=== PATIENT | male | born 1985 | race Caucasian/White ===

== ENCOUNTER 2023-10-28 14:34 | Inpatient (IN) | payer SELFPAY ==
--- OUTSIDE RECORDS SUMMARY | 2023-10-28 14:38 | XMS REPORT | Continuity of Care Document ---
Author Name Unknown Address [address] [facility] [address] [place] [address] [facility] Address [address] [facility] [address] [facility] [address] [place] [address] Care Team Providers Care Catheter Finisher And Inspector Name Role Phone GAY BRADFORD Primary Care Physician Unavail able BARRY DALLAS Attending Clinician Unavailable GHANSHYAM VALDEZ Attending Clinician Unavail able Nurse, Adc Pob Immunization Attending Clinician Unavailable Ghanshyam Valdez DO Attending Clinician [phone] CLEMENTE LADD Attending Clinician Unavailable Clemente Ladd MD Attending Clinician [phone] Gay Mehta Attending Clinician [phone] GAY BRADFORD Attending Clinician Unavailabl e Doctor Unassigned, [place] Attending Clinician U Marshall Lacy MD Attending Clinician [phone] Shawn Amezcua MD Attending Clinician [phone] MARSHALL MERA Attending Clinician Unavailable Shawn Amezcua MD Admitting Clinician [phone] Payers Payer Name Policy Type Policy Number Effective Date Expirati on Date Source [facility] [id number] 00:00:00 Problems Condition Name Condition Details Condition Category Status Onset Date Resolution Date Last Treatment Date Treating Clinician Comments Source Morbid obesity with body mass index of 40.0-49.9 Morbid obesity with body mass index of 40.0-49.9 Disease Active 04-17 00:00: 00 [facility] Chest pain Chest pain Disease Active 04-17 00:00: 00 [facility] Morbid obesity with body mass index of 40.0-49.9 Morbid obesity with body mass index of 40.0-49.9 Disease Active 04-17 00:00: 00 [facility] Essential hypertensi on Essential hypertensi on Disease Active 04-17 00:00: 00 [facility] Family history of early CAD Family history of early CAD Disease Active 04-17 00:00: 00 [facility] Allergies, Adverse Reactions, Alerts Allergy Name Allergy Type Status Severity Reaction(s) Onset Date Inactive Date Treating Clinician Comments Source NO KNOWN ALLERGIE S Drug Class Active [facility] Social History Social Habit Start Date Stop Date Quantity Comments Source Exposure to SARS-CoV-2 (event) Not sure [facility] Alcohol intake 2021-05-07 00:00:00 2021-05-07 00:00:00 Lifetime non-drinker (finding) [facility] Tobacco use and exposure 2021-04-17 00:00:00 2021-04-17 00:00:00 Never used [facility] Sex Assigned At 1985 00:00:00 1985 00:00:00 [facility] Smoking Status Start Date Stop Date Source Never smoker [facility] Medications Ordered Medication Name Filled Medication Name Start Date Stop Date Current Medication? Ordering Clinician Indication Dosage Frequency Signature (SIG) Comments Components Source lisinopriL 20 mg tablet 05-01 20:09: 37 05-01 00:00 :00 No 20mg Take 20 mg by mouth daily. [facility] lisinopriL 20 mg tablet 05-01 20:09: 37 05-01 00:00 :00 No 20mg Take 20 mg by mouth daily. [facility] lisinopriL 20 mg tablet 05-01 00:00: 00 Yes [id number] 20mg Take 1 tablet by mouth daily. [facility] atorvastati n 20 mg tablet 0 14 00:00: 00 Yes [id number] 20mg Take 1 tablet by mouth at bedtime. [facility] aspirin 81 mg chewable tablet 0 14 00:00: 00 Yes [id number] 81mg Take 1 tablet by mouth daily. [facility] lisinopriL 20 mg tablet 0 14 00:00: 00 Yes [id number] 20mg Take 1 tablet by mouth daily. [facility] atorvastati n 20 mg tablet 0 14 00:00: 00 Yes [id number] 20mg Take 1 tablet by mouth at bedtime. [facility] aspirin 81 mg chewable tablet 0 05-01 00:00: 00 Yes [id number] 81mg Take 1 tablet by mouth daily. [facility] lisinopriL 20 mg tablet 0 05-01 00:00: 00 Yes [id number] 20mg Take 1 tablet by mouth daily. [facility] atorvastati n 20 mg tablet 0 05-01 00:00: 00 Yes [id number] 20mg Take 1 tablet by mouth at bedtime. [facility] aspirin 81 mg chewable tablet 0 05-01 00:00: 00 Yes [id number] 81mg Take 1 tablet by mouth daily. [facility] lisinopriL 20 mg tablet 0 05-01 00:00: 00 Yes [id number] 20mg Take 1 tablet by mouth daily. [facility] atorvastati n 20 mg tablet 0 05-01 00:00: 00 Yes [id number] 20mg Take 1 tablet by mouth at bedtime. [facility] aspirin 81 mg chewable tablet 0 14 00:00: 00 Yes [id number] 81mg Take 1 tablet by mouth daily. [facility] lisinopriL 20 mg tablet 2020-0 14 00:00: 00 Yes [id number] 20mg Take 1 tablet by mouth daily. [facility] atorvastati n 20 mg tablet 2020-0 14 00:00: 00 Yes [id number] 20mg Take 1 tablet by mouth at bedtime. [facility] lisinopriL 20 mg tablet 0 14 00:00: 00 Yes [id number] 20mg Take 1 tablet by mouth daily. [facility] atorvastati n 20 mg tablet 0 14 00:00: 00 Yes [id number] 20mg Take 1 tablet by mouth at bedtime. [facility] lisinopriL 20 mg tablet 0 05-01 00:00: 00 Yes [id number] 20mg Take 1 tablet by mouth daily. [facility] atorvastati n 20 mg tablet 0 05-01 00:00: 00 Yes [id number] 20mg Take 1 tablet by mouth at bedtime. [facility] lisinopriL 20 mg tablet 0 05-01 00:00: 00 Yes [id number] 20mg Take 1 tablet by mouth daily. [facility] atorvastati n 20 mg tablet 0 05-01 00:00: 00 Yes [id number] 20mg Take 1 tablet by mouth at bedtime. [facility] lisinopriL 20 mg tablet 0 05-01 00:00: 00 Yes [id number] 20mg Take 1 tablet by mouth daily. [facility] atorvastati n 20 mg tablet 0 05-01 00:00: 00 Yes [id number] 20mg Take 1 tablet by mouth at bedtime. [facility] lisinopriL 20 mg tablet 0 14 00:00: 00 Yes [id number] 20mg Take 1 tablet by mouth daily. [facility] atorvastati n 20 mg tablet 0 14 00:00: 00 Yes [id number] 20mg Take 1 tablet by mouth at bedtime. [facility] aspirin 81 mg chewable tablet 0 05-01 00:00: 00 05-07 00:00 :00 No [id number] 81mg Take 1 tablet by mouth daily. [facility] aspirin 81 mg chewable tablet 0 05-01 00:00: 00 2021- 07-20 00:00 :00 No [id number] 81mg Take 1 tablet by mouth daily. [facility] atorvastati n (LIPITOR) tablet 20 mg 04-19 02:00: 00 Yes 20mg 20 mg, Oral, QHS, First dose on Thu04/18/21 at 2100, Until Discontinu ed, Routine [facility] aspirin 81 mg chewable tablet 04-19 00:00: 00 05-20 04:59 :00 No [id number] 81mg Take 1 tablet by mouth daily for 30 days. [facility] aspirin 81 mg chewable tablet 04-19 00:00: 00 05-01 00:00 :00 No [id number] 81mg Take 1 tablet by mouth daily for 30 days. [facility] aspirin 81 mg chewable tablet 04-19 00:00: 00 05-01 00:00 :00 No [id number] 81mg Take 1 tablet by mouth daily for 30 days. [facility] lisinopriL 20 mg tablet 04-18 21:16: 40 Yes 20mg Take 20 mg by mouth daily. [facility] sulfur hexafluorid e microsphr (LUMASON) injection 5 mL 04-18 14:15: 00 04-18 14:15 :00 No [id number] 5mL 5 mL, Intravenou s, ONCE, 1 dose, Keyonna 04/18/21 at 0915, Routine
food service team member approving Restricted medication : CLEMENTE LADD [facility] KCL (KLOR-CON M20) tablet 40 mEq 04-18 14:15: 00 04-18 14:13 :00 No 40meq 40 mEq, Oral, ONCE, 1 dose, Keyonna 04/18/21 at 0915, Routine [facility] aspirin chewable tablet 81 mg 04-18 14:00: 00 Yes 81mg 81 mg, Oral, DAILY, First dose on Keyonna 04/18/21 at 0900, Until Discontinu ed, Routine [facility] lisinopriL (PRINIVIL,Z ESTRIL) tablet 20 mg 04-18 14:00: 00 Yes 20mg 20 mg, Oral, DAILY, First dose on Thu04/18/21 at 0900, Until Discontinu ed, Routine [facility] enoxaparin (LOVENOX) injection 40 mg 04-18 14:00: 00 Yes 40mg 40 mg, Subcutaneo us, DAILY, First dose on Thu04/18/21 at 0900, Until Discontinu ed, Routine [facility] atorvastati n 20 mg tablet 04-18 00:00: 00 05-19 04:59 :00 No [id number] 20mg Take 1 tablet by mouth at bedtime for 30 days. [facility] atorvastati n 20 mg tablet 04-18 00:00: 00 05-01 00:00 :00 No [id number] 20mg Take 1 tablet by mouth at bedtime for 30 days. [facility] atorvastati n 20 mg tablet 04-18 00:00: 00 05-01 00:00 :00 No [id number] 20mg Take 1 tablet by mouth at bedtime for 30 days. [facility] morpHINE injection 4 mg 04-17 22:10: 22 04-18 22:09 :22 No 4mg 4 mg, Slow IV Push, Q6HPRN, Starting Thu04/17/21 at 1710, Until Thu04/18/21 at 1709, Routine, Pain (scale 7-10) [facility] HYDROcodone -acetaminop hen (NORCO 5) 5-325 mg tablet 1 tablet 04-17 22:10: 16 04-19 22:09 :16 No 1{tbl} 1 tablet, Oral, Q6HPRN, Starting Thu04/17/21 at 1710, Until Thu04/19/21 at 1709, Routine, Pain (scale 4-6) [facility] acetaminoph en (TYLENOL) tablet 650 mg 04-17 22:10: 15 Yes 650mg 650 mg, Oral, Q6HPRN, Starting Thu04/17/21 at 1710, Until Discontinu ed, Routine, Pain (scale 1-3) [facility] aspirin chewable tablet 324 mg 04-17 20:45: 00 04-17 19:36 :00 No 324mg 324 mg, Oral, ONCE, 1 dose, Thu04/17/21 at 1545, Routine [facility] nitroglycer in (NITROSTAT) sublingual tablet 0.4 mg 04-17 19:32: 31 04-17 19:46 :00 No .4mg 0.4 mg, Sublingual , Q5MIN PRN, 3 doses, Starting Thu04/17/21 at 1432, Until Discontinu ed, JOSE, Chest pain [facility] Vital Signs Vital Name Observation Time Observation Value Comments S ource Systolic blood pressure 2021-05-07 19:59:00 124 mm[Hg] [facility] Diastolic blood pressure 2021-05-07 19:59:00 84 mm[Hg] [facility] Heart rate 2021-05-07 19:59:00 85 /min [facility] Respiratory rate 2021-05-07 19:59:00 21 /min [facility] Body height 2021-05-07 19:59:00 180.3 cm [facility] Body weight 2021-05-07 19:59:00 151.547 kg [facility] BMI 2021-05-07 19:59:00 46.60 kg/m2 [facility] Oxygen saturation in Arterial blood by Pulse oximetry 2021-05-07 19:59:00 97 /min [facility] Systolic blood pressure 2021-05-01 19:58:00 129 mm[Hg] [facility] Diastolic blood pressure 2021-05-01 19:58:00 82 mm[Hg] [facility] Heart rate 2021-05-01 19:51:00 89 /min [facility] Body height 2021-05-01 19:51:00 180.3 cm [facility] Body weight 2021-05-01 19:51:00 148.326 kg [facility] BMI 2021-05-01 19:51:00 45.61 kg/m2 [facility] Oxygen saturation in Arterial blood by Pulse oximetry 2021-05-01 19:51:00 95 /min [facility] Body temperature 2021-04-18 16:49:00 36.39 Cora [facility] Respiratory rate 2021-04-18 16:49:00 18 /min [facility] Oxygen saturation in Arterial blood by Pulse oximetry 2021-04-18 16:49:00 95 /min [facility] Systolic blood pressure 2021-04-18 16:49:00 129 mm[Hg] [facility] Diastolic blood pressure 2021-04-18 16:49:00 79 mm[Hg] [facility] Heart rate 2021-04-18 16:49:00 82 /min [facility] Body height 2021-04-17 22:41:00 180.3 cm [facility] Body weight 2021-04-17 22:41:00 147.963 kg [facility] BMI 2021-04-17 22:41:00 45.50 kg/m2 [facility] Procedures Procedure Date / Time Performed Performing Clinician Source SARS-COV-2 COVID-19 VACCINE,0.3ML,IM (PFIZER) 2021-07-17 14:20:13 Doctor Unassigned, Dona Ana [facility] SARS-COV-2 COVID-19 VACCINE,0.3ML,IM (PFIZER) 2021-06-20 15:36:17 Doctor Unassigned, Don[place] Ana [facility] AUTHORIZATION TO RELEASE PHI TO [facility] 2021-05-01 05:01:00 Doctor Unassigned, Dona Ana [facility] TRANSTHORACIC ECHO (TTE) COMPLETE W/ CONTRAST 2021-04-18 14:11:29 Shawn Amezcua [facility] MAGNESIUM 2021-04-18 08:39:00 Beba [facility] TROPONIN I 2021-04-18 08:39:00 Beba Ortega [facility] COMP. METABOLIC PANEL ([id number]) 2021-04-18 08:39:00 Beba Ortega [facility] N-TERMINAL PRO-BNP 2021-04-18 08:39:00 Beba Ortega [facility] BASIC METABOLIC PANEL (NA, K, CL, CO2, GLUCOSE, BUN, CREATININE, CA) 2021-04-18 08:28:00 Shawn Amezcua [facility] CBC WITH DIFF 2021-04-18 08:28:00 Shawn Amezcua [facility] TROPONIN I 2021-04-18 02:08:00 Shanw Amezcua [facility] THYROID STIMULATING HORMONE 2021-04-18 02:08:00 Jordan evelyn [facility] LIPID PANEL (09739)(TOTAL CHOLESTEROL, TRIGLYCERIDES, HDL) 2021-04-18 02:08:00 Porfirio Ferris [facility] N-TERMINAL PRO-BNP 2021-04-18 02:08:00 Porfirio Ferris [facility] TROPONIN I 2021-04-17 23:04:00 Shawn Amezcua [facility] COVID-19 (ID NOW RAPID TESTING) 2021-04-17 21:01:00 E[facility] URINE DRUG (IMMUNOASSAY) - COMPREHENSIVE DRUG SCREEN 2021-04-17 20:47:00 Ede [facility] XR CHEST 1 VW 2021-04-17 19:56:52 Marshall Mera [facility] LIPASE 2021-04-17 19:30:00 Marshall Mera [facility] TROPONIN I 2021-04-17 19:30:00 Marshall Mera [facility] HEPATIC FUNCTION PANEL ([id number]) (ALB,T.PRO,BILI T,BU/BC,ALT,AST,ALK PHOS) 2021-04-17 19:30[facility] (NA, K, CL, CO2, GLUCOSE, BUN, CREATININE, CA) 2021-04-17 19:30:00 [facility] CBC WITH DIFF 2021-04-17 19:30:00 Marshall Mera [facility] GLYCOSYLATED HEMOGLOBIN (A1C) 2021-04-17 19:30:00 Shawn Amezcua [facility] HB ECG ROUTINE & RHYTHM STRIP 2021-04-17 19:19:01 Marshall Mera [facility] CONSENT/REFUSAL FOR DIAGNOSIS AND TREATMENT 2021-04-17 19:13:16 Doctor Unassigned, Dona Ana [facility] NOTICE OF PRIVACY PRACTICES 2021-04-17 19:12:52 Doctor Unassigned, Dona Ana [facility] Encounters Start Date/Time End Date/Time Encounter Type Admission Type Attending Clinicians Care Facility Care Department Encounter ID Source 2021-11-01 15:30:00 2021-11-01 15:30:00 [facility] [id number] [facility] 2021-07-17 09:10:00 2021-07-17 09:10:00 [id number] 2021-07-17 08:56:25 2021-07-17 08:56:36 [facility] [id number] [id number] [id number] [facility] 2021-07-11 08:10:00 2021-07-11 08:10:00 Outpatient GHANSHYAM [facility] [id number] [facility] 2021-06-20 13:10:00 2021-06-20 13:10:00 [facility] [id number] [facility] 2021-06-20 10:34:17 2021-06-20 10:34:29 Imm/Inj Visit NurseJoseph ImmunGhanshyam Martinez [facility] [id number] [id number] [id number] [id number] [facility] 2021-06-04 14:00:00 2021-06-04 14:00:00 Outpatient R CLEMENTE [facility]ADD [facility] [id number] [facility] 2021-05-31 15:30:00 2021-05-31 15:30:00 [facility] [id number] [facility] 2021-05-31 00:00:00 2021-05-31 00:00:[address] [facility] [id number] [id number] 4.2.7.2.686 [id number] [facility] 2021-05-07 14:54:54 2021-05-07 15:11:17 Office Visit Jair [facility] [id number] [id number] 4.2.7.2.686 [id number] [facility] 2021-05-07 15:00:00 2021-05-07 15:00:00 Outpatient R CLEMENTE LADD [facility] [id number] [facility] 2021-05-01 14:46:28 2021-05-01 15:12:23 [facility] [id number] [id number] 4.2.7.2.686 [id number] [facility] 2021-05-01 15:00:00 2021-05-01 15:00:00 Outpatient R [facility] [id number] [facility] 2021-05-01 00:00:00 2021-05-01 00:00:00 [facility] (Out[facility] [id number] 350.1.13.10 4.2.7.2.686 [id number] [facility] 2021-05-01 00:00:00 2021-05-01 00:00:00 Orders Only Doctor Unassigned, [place] Ana [facility] [id number] 350.1.13.10 4.2.7.2.686 [id number] [facility] 2021-04-17 14:20:00 2021-04-18 16:13:00 Emergency Marshall Mera [facility] [id number] [id number] 4.2.7.2.686 [id number] [facility] 2021-04-17 14:20:00 2021-04-17 14:20:00 Emergency X MARSHALL [facility]A [facility] ERT [id number] [facility] Results Test Description Test Time Test Comments Results Result Co mments Source [id number] 10:16:57* Test Item Value Reference Range Interpretation Comme nts NT-proBNP (test code = 9978317143) 26 pg/mL See_Comment [Automated message] The system which generated this result transmitted reference range: <=125. The reference range was not used to interpret this result as normal/abnormal. YORDY (test code = YORDY) Biotin has been reported to cause a negative bias, interpret results relative to patient's use of biotin. Lab Interpretation (test code = 02128-0) [facility] 10:07:58* Test Item Value Reference Range Interpretation Comme nts MAGNESIUM (test code = 8435297275) 2.1 mg/dL 1.7-2.4 Lab Interpretation (test cod e = 69818-6) [facility] (16963)2021-04-18 10:07:53* Test Item Value Reference Range Interpretation Comme nts NA (test code = 8432529401) 140 mmol/L 135-145 K (test code = 8968248833) 3.4 mmol/L 3.5-5.0 L CL (test code = 4445313776) 100 mmol/L 98-108 CO2 TOTAL (test code = 8793661228) 32 mmol/L 23-31 H AGAP (test code = 1898539651) 2-16 BUN (test code = 8387695819) 21 mg/dL 7-23 GLUCOSE (test code = 6985319777) 85 mg/dL 70-110 CREATININE (test code = 9544176903) 0.79 mg/dL 0.60-1.25 TOTAL BILI (test code = 2673674888) 0.6 mg/dL 0.1-1.1 CALCIUM (test code = 5528931484) 9.3 mg/dL 8.6-10.6 T PROTEIN (test code = 1629541998) 7.5 g/dL 6.3-8.2 ALBUMIN (test code = 3545057585) 4.3 g/dL 3.5-5.0 ALK PHOS (test code = 0952077639) 80 U/L 34-122 ALTv (test code = 1742-6) 28 U/L 5-50 AST(SGOT) (test code = 9193449036) 28 U/L 13-40 eGFR (test code = 1638896081) mL/min/1.73m2 YORDY (test code = YORDY) Association of Glomerular Filtration Rate (GFR) and Staging of Kidney Disease* + --+ --+ ------+| GFR (mL/min/1.73 m2) ?| With Kidney Damage ?| ?Without Kidney Damage+ --------+ --------+ +| ?>90 ?| ?Stage one ?| ? Normal ?+ ---+ ---+ -------+| ?60-89 ?| ?Stage two ?| ? Decreased GFR ? + --+ --+ ------+| ?30-59 ?| ?Stage three ?| ? Stage three ? + --+ --+ ------+| ?15-29 ?| ?Stage four ? | ? Stage four ?+ ---+ ---+ -------+| ?<15 (or dialysis) ? ?| ?Stage five ? | ? Stage five ?+ ---+ ---+ -------+ *Each stage assumes the associated GFR level has been in effect for at least three months. ?Stages 1 to 5, with or without kidney disease, indicate chronic kidney disease. Notes: Determination of stages one and two (with eGFR >59mL/min/1.73 m2) requires estimation of kidney damage for at least three months as defined by structural or functional abnormalities of the kidney, manifested by either:Pathological abnormalities or Markers of kidney damage (including abnormalities in the composition of the blood or urine or abnormalities in imaging tests). Lab Interpretation (test code = 07860-0) Abnormal [facility] Metabolic Panel (NA, K, CL, CO2, GLUCOSE, BUN, CREATININE, CA)2021-04-18 10:00:11* Test Item Value Reference Range Interpretation Comme nts NA (test code = 5410396255) 140 mmol/L 135-145 K (test code = 5607890058) 3.4 mmol/L 3.5-5.0 L CL (test code = 3549750573) 100 mmol/L 98-108 CO2 TOTAL (test code = 8555197795) 31 mmol/L 23-31 AGAP (test code = 3851440920) 2-16 BUN (test code = 3659681362) 21 mg/dL 7-23 GLUCOSE (test code = 0439285689) 86 mg/dL 70-110 CREATININE (test code = 4023131443) 0.79 mg/dL 0.60-1.25 CALCIUM (test code = 9426234979) 9.4 mg/dL 8.6-10.6 eGFR (test code = 0275276229) mL/min/1.73m2 YORDY (test code = YORDY) Association of Glomerular Filtration Rate (GFR) and Staging of Kidney Disease* + --+ --+ ------+| GFR (mL/min/1.73 m2) ?| With Kidney Damage ?| ?Without Kidney Damage+ --------+ --------+ +| ?>90 ?| ?Stage one ?| ? Normal ?+ ---+ ---+ -------+| ?60-89 ?| ?Stage two ?| ? Decreased GFR ? + --+ --+ ------+| ?30-59 ?| ?Stage three ?| ? Stage three ? + --+ --+ ------+| ?15-29 ?| ?Stage four ? | ? Stage four ?+ ---+ ---+ -------+| ?<15 (or dialysis) ? ?| ?Stage five ? | ? Stage five ?+ ---+ ---+ -------+ *Each stage assumes the associated GFR level has been in effect for at least three months. ?Stages 1 to 5, with or without kidney disease, indicate chronic kidney disease. Notes: Determination of stages one and two (with eGFR >59mL/min/1.73 m2) requires estimation of kidney damage for at least three months as defined by structural or functional abnormalities of the kidney, manifested by either:Pathological abnormalities or Markers of kidney damage (including abnormalities in the composition of the blood or urine or abnormalities in imaging tests). Lab Interpretation (test code = 01397-2) Abnormal [facility] with [id number] 09:19:31* Test Item Value Reference Range Interpretation Comme nts WBC (test code = 6690-2) See_Comment [[employer] The system which generated this result transmitted reference range: 4.20 - 10.70 10*3/?L. The reference range was not used to interpret this result as normal/abnormal. RBC (test code = 789-8) See_Comment [[employer] The system which generated this result transmitted reference range: 4.26 - 5.52 10*6/?L. The reference range was not used to interpret this result as normal/abnormal. HGB (test code = 718-7) 13.6 g/dL 12.2-16.4 HCT (test code = 4544-3) 40.8 % 38.4-49.3 MCV (test code = 787-2) 85.5 fL 81.7-95.6 MCH (test code = 785-6) 28.5 pg 26.1-32.7 MCHC (test code = 786-4) 33.3 g/dL 31.2-35.0 RDW-SD (test code = 00762-3) 38.7 fL 38.5-51.6 RDW-CV (test code = 788-0) 12.4 % 12.1-15.4 PLT (test code = 777-3) See_Comment [[employer] The system which generated this result transmitted reference range: 150 - 328 10*3/?L. The reference range was not used to interpret this result as normal/abnormal. MPV (test code = 25180-9) 8.9 fL 9.8-13.0 L NRBC/100 WBC (test code = 7077479861) See_Comment [Automated me ssage] The system which generated this result transmitted reference range: 0.0 - 10.0 /100 WBCs. The reference range was not used to interpret this result as normal/abnormal. NRBC x10^3 (test code = 7471581712) <0.01 See_Comment [Automated messa ge] The system which generated this result transmitted reference range: 10*3/?L. The reference range was not used to interpret this result as normal/abnormal. GRAN MAT (NEUT) % (test code = 770-8) 61.6 % IMM GRAN % (test code = 5686260079) 0.70 % LYMPH % (test code = 736-9) 24.8 % MONO % (test code = 5905-5) 10.6 % EOS % (test code = 713-8) 1.7 % BASO % (test code = 706-2) 0.6 % GRAN MAT x10^3(ANC) (test code = 3912205158) 5.58 10*3/uL 1.99-6.95 IMM GRAN x10^3 (test code = 7072057252) 0.06 10*3/uL 0.00-0.06 LYMPH x10^3 (test code = 731-0) 2.24 10*3/uL 1.09-3.23 MONO x10^3 (test code = 742-7) 0.96 10*3/uL 0.36-1.02 EOS x10^3 (test code = 711-2) 0.15 10*3/uL 0.06-0.53 BASO x10^3 (test code = 704-7) 0.05 10*3/uL 0.01-0.09 Lab Interpretation (test code = 80648-3) [facility] [id number] 06:18:46 * Test Item Value Reference Range Interpretation Comme nts TSH (test code = 2833554886) See_Comment Biotin has been reported to cause a negative bias, interpret results relative to patient's use of biotin. [Automated message] The system which generated this result transmitted reference range: 0.45 - 4.70 mIU/L. The reference range was not used to interpret this result as normal/abnormal. Lab Interpretation (test code = 77954-3) Normal [facility] [id number] 03:58:39* Test Item Value Reference Range Interpretation Comme nts NT-proBNP (test code = 7151291367) 27 pg/mL See_Comment [Automated message] The system which generated this result transmitted reference range: <=125. The reference range was not used to interpret this result as normal/abnormal. YORDY (test code = YORDY) Biotin has been reported to cause a negative bias, interpret results relative to patient's use of biotin. Lab Interpretation (test code = 63765-0) [facility] (34879)(TOTAL CHOLESTEROL, TRIGLYCERIDES, HDL)2021-04-18 03:49:58* Test Item Value Reference Range Interpretation Comme nts CHOL (test code = 5557602504) 188 mg/dL 120-200 HDL (test code = 0117554848) 25 mg/dL >40 L HDLC RATIO (test code = 6963893999) See_Comment H [Automated [employer]] The system which generated this result transmitted reference range: <=5.0. The reference range was not used to interpret this result as normal/abnormal. TRIG (test code = 1332362971) 161 mg/dL 30-170 LDL CHOL (test code = 50723-3) 131 mg/dL See_Comment [Automated [employer]] The system which generated this result transmitted reference range: <=160. The reference range was not used to interpret this result as normal/abnormal. VLDL (test code = 4316447406) 32 mg/dL 5-60 Lab Interpretation (test code = 98645-4) [facility]normal [facility] [id number] 02:43:55* Test Item Value Reference Range Interpretation Comments TROPONIN I (test code = 6302789805) 0.003 ng/mL See_Comment [Automated message] The system which generated this result transmitted reference range: <=0.034. The reference range was not used to interpret this result as normal/abnormal. YORDY (test code = YORDY) Reference (Normal) Range (defined by the 99th percentile reference limit): <= 0.034 ng/mL Note: Cardiac troponin begins to rise 3-4 hours after the onset of ischemia. Repeat in 4-6 hours if the sample was drawn within 3-4 hours of the onset of the symptom and found normal. Diagnosis of myocardial injury is made with acute changes in cTn concentrations with at least one serial sample above the 99th percentile upper reference limit (URL), taken together with the patient's clinical presentation. Biotin has been reported to cause a negative bias, interpret results relative to patient's use of biotin. Lab Interpretation (test code = 60390-9) [facility] [id number] 23:46:38* Test Item Value Reference Range Interpretation Comments TROPONIN I (test code = 7437236763) 0.004 ng/mL See_Comment [Automated message] The system which generated this result transmitted reference range: <=0.034. The reference range was not used to interpret this result as normal/abnormal. YORDY (test code = YORDY) Reference (Normal) Range (defined by the 99th percentile reference limit): <= 0.034 ng/mL Note: Cardiac troponin begins to rise 3-4 hours after the onset of ischemia. Repeat in 4-6 hours if the sample was drawn within 3-4 hours of the onset of the symptom and found normal. Diagnosis of myocardial injury is made with acute changes in cTn concentrations with at least one serial sample above the 99th percentile upper reference limit (URL), taken together with the patient's clinical presentation. Biotin has been reported to cause a negative bias, interpret results relative to patient's use of biotin. Lab Interpretation (test code = 81831-8) Normal [facility]GLYCOSYLATED HEMOGLOBIN (A1C)2021-04-17 22:54:19* Test Item Value Reference Range Interpretation Comme nts HGB A1C (test code = 4548-4) 5.5 % 4.0-5.7 YORDY (test code = YORDY) Reference RangesNormal: <5.7%Prediabetes: 5.7 - 6.4%Diabetes: > 6.5% Lab Interpretation (test code = 67510-5) [facility] (IMMUNOASSAY) - COMPREHENSIVE DRUG [id number] 21:50:44* Test Item Value Reference Range Interpretation Comme nts AMPHET (test code = 2087472839) Negative Negative PRIYA U (test code = 9466287186) Negative Negative BENZO U (test code = 6963303653) Negative Negative Cocaine Metabolite (test code = 2842014184) Negative Negative METHADONE (test code = 7634577715) Negative Negative OPIATES (test code = 7836970659) Negative Negative PCP (test code = 4086252619) Negative Negative THC (test code = 1029420242) Presumptive Positive Negative A YORDY (test code = YORDY) Urine Drug Cutoff Ranges Cocaine: ? 150 ng/mLBenzodiazepines: ? ? 200 ng/mLMethadone: ? 300 ng/mLAmphetamine: ? 1,000 ng/mLOpiates: ? 300 ng/mLCannabinoids: ?50 ng/mLPhencyclidine: ? ? ? 25 ng/mLBarbiturates: ?200 ng/mL The results are to be used only for medical (i.e., treatment) purposes. Unconfirmed screening results must not be used for non-medical purposes (e.g., employment testing, legal testing). Lab Interpretation (test code = 82309-0) [facility]normal [facility] [place]rop[facility] [id number] 21:48:30* Test Item Value Reference Range Interpretation Comments TROPONIN I (test code = 2389946685) 0.003 ng/mL See_Comment [Automated message] The system which generated this result transmitted reference range: <=0.034. The reference range was not used to interpret this result as normal/abnormal. YORDY (test code = YORDY) Reference (Normal) Range (defined by the 99th percentile reference limit): <= 0.034 ng/mL Note: Cardiac troponin begins to rise 3-4 hours after the onset of ischemia. Repeat in 4-6 hours if the sample was drawn within 3-4 hours of the onset of the symptom and found normal. Diagnosis of myocardial injury is made with acute changes in cTn concentrations with at least one serial sample above the 99th percentile upper reference limit (URL), taken together with the patient's clinical presentation. Biotin has been reported to cause a negative bias, interpret results relative to patient's use of biotin. Lab Interpretation (test code = 48424-4) Normal [facility] (ID NOW RAPID TESTING)2021-04-17 21:37:29* Test Item Value Reference Range Interpretation Comme nts SARS-CoV-2 Rapid ID NOW (test code = 00811-9) Not Detected Not Detected YORDY (test code = YORDY) ID NOW COVID-19 As say is an isothermal nucleic acid amplification test intended for the qualitative detection of nucleic acid from SARS-CoV-2 viral RNA in nasopharyngeal (PROGRAMMING INSTRUCTOR) specimens. It is used under Emergency Use Authorization (EUA) by FDA. The limit of detection (LOD) of the assay is 125 Genome Equivalents/mL. A positive result is indicative of the presence of SARS-CoV-2 RNA. ?Clinical correlation with patient history and other diagnostic information is necessary to determine patient infection status. A negative (Not Detected) result does not preclude SARS-CoV-2 infection. In patients with clinical symptoms and other tests that are consistent with SARS-CoV-2 infection, negative results should be treated as presumptive negative and a new specimen should be tested with alternative PCR molecular test. Invalid: Please collect a new specimen for repeat patient testing if clinically indicated. Lab Interpretation (test code = 63234-7) [facility] (ALB, T.PRO, BILI T, BU/BC, ALT, AST, ALK PHOS)2021-04-17 21:37:08* Test Item Value Reference Range Interpretation Comme nts TOTAL BILI (test code = 4847503939) 0.8 mg/dL 0.1-1.1 BILI UNCON (test code = 7014437033) 0.6 mg/dL 0.1-1.1 BILI CONJ (test code = 0764157402) 0.0 mg/dL 0.0-0.3 T PROTEIN (test code = 3723194156) 8.7 g/dL 6.3-8.2 H ALBUMIN (test code = 2425418940) 5.1 g/dL 3.5-5.0 H ALK PHOS (test code = 1584331775) 99 U/L 34-122 ALTv (test code = 1742-6) 30 U/L 5-50 AST(SGOT) (test code = 8825690462) 30 U/L 13-40 Lab Interpretation (test cod e = 06608-3) Abnormal [facility] Metabolic Panel (NA, K, CL, CO2, GLUCOSE, BUN, CREATININE, CA)2021-04-17 21:36:48* Test Item Value Reference Range Interpretation Comme nts NA (test code = 5474832542) 142 mmol/L 135-145 K (test code = 0458362678) 3.9 mmol/L 3.5-5.0 CL (test code = 6770128089) 102 mmol/L 98-108 CO2 TOTAL (test code = 6475779480) 28 mmol/L 23-31 AGAP (test code = 3592531922) 2-16 BUN (test code = 8597510619) 19 mg/dL 7-23 GLUCOSE (test code = 3789728241) 94 mg/dL 70-110 CREATININE (test code = 0342717549) 0.90 mg/dL 0.60-1.25 CALCIUM (test code = 7085698387) 10.2 mg/dL 8.6-10.6 eGFR (test code = 2439619482) mL/min/1.73m2 YORDY (test code = YORDY) Association of Glomerular Filtration Rate (GFR) and Staging of Kidney Disease* + + +- +| GFR (mL/min/1.73 m2) ?| With Kidney Damage ?| ?Without Kidney Damage+ ------+ ----+ ------+| ?>90 ?| ?Stage one ?| ? Normal ?+ -+ + -+| ?60-89 ?| ?Stage two ?| ? Decreased GFR ? + + +- +| ?30-59 ?| ?Stage three ?| ? Stage three ? + + +- +| ?15-29 ?| ?Stage four ? | ? Stage four ?+ -+ + -+| ?<15 (or dialysis) ? ?| ?Stage five ? | ? Stage five ?+ -+ + -+ *Each stage assumes the associated GFR level has been in effect for at least three months. ?Stages 1 to 5, with or without kidney disease, indicate chronic kidney disease. Notes: Determination of stages one and two (with eGFR >59mL/min/1.73 m2) requires estimation of kidney damage for at least three months as defined by structural or functional abnormalities of the kidney, manifested by either:Pathological abnormalities or Markers of kidney damage (including abnormalities in the composition of the blood or urine or abnormalities in imaging tests). [facility] ArlingtonLipase [id number] 21:36:48* Test Item Value Reference Range Interpretation Comme nts LIPASE (test code = 2933380203) 28 U/L 0-220 Lab Interpretation (test cod e = 78182-2) Normal [facility] ArlingtonChes 1 [id number] 20:02:37HISTORY: Chest pain. TECHNIQUE: Portable AP semierect view of the chest is obtained. FINDINGS: No acute pneumonia. No pneumothorax or pleural effusion orpulmonary congestion detected. Cardiac size iswithin normal limits. CONCLUSIONS: No signs of acute cardiopulmonary disease.[facility], Radiant Results Inft User - 04/17/2021 3:03 PM CDT HISTORY: Chest pain.TECHNIQUE: Portable AP semierect view of the chest is obtained.FINDINGS: No acute pneumonia. No pneumothorax or pleural effusion orpulmonary congestion detected. Cardiac size is within normal limits. CONCLUSIONS: No signs of acute cardiopulmonary disease.[facility] ArlingtonCB with Differential 2021-04-17 19:45:58* Test Item Value Reference Range Interpretation Comme nts WBC (test code = 6690-2) See_Comment [Automated [employer]] The system which generated this result transmitted reference range: 4.20 - 10.70 10*3/?L. The reference range was not used to interpret this result as normal/abnormal. RBC (test code = 789-8) See_Comment [Automated [employer]] The system which generated this result transmitted reference range: 4.26 - 5.52 10*6/?L. The reference range was not used to interpret this result as normal/abnormal. HGB (test code = 718-7) 14.8 g/dL 12.2-16.4 HCT (test code = 4544-3) 44.3 % 38.4-49.3 MCV (test code = 787-2) 84.2 fL 81.7-95.6 MCH (test code = 785-6) 28.1 pg 26.1-32.7 MCHC (test code = 786-4) 33.4 g/dL 31.2-35.0 RDW-SD (test code = 88896-9) 38.0 fL 38.5-51.6 L RDW-CV (test code = 788-0) 12.5 % 12.1-15.4 PLT (test code = 777-3) See_Comment [Automated [employer] ge] The system which generated this result transmitted reference range: 150 - 328 10*3/?L. The reference range was not used to interpret this result as normal/abnormal. MPV (test code = 26374-6) 8.6 fL 9.8-13.0 L NRBC/100 WBC (test code = 2911742588) See_Comment [Automated [employer]] The system which generated this result transmitted reference range: 0.0 - 10.0 /100 WBCs. The reference range was not used to interpret this result as normal/abnormal. NRBC x10^3 (test code = 4833769102) <0.01 See_Comment [Automated messa ge] The system which generated this result transmitted reference range: 10*3/?L. The reference range was not used to interpret this result as normal/abnormal. GRAN MAT (NEUT) % (test code = 770-8) 71.2 % IMM GRAN % (test code = 7364493656) 0.70 % LYMPH % (test code = 736-9) 17.9 % MONO % (test code = 5905-5) 8.9 % EOS % (test code = 713-8) 0.9 % BASO % (test code = 706-2) 0.4 % GRAN MAT x10^3(ANC) (test code = 2672051465) 7.42 10*3/uL 1.99-6.95 H IMM GRAN x10^3 (test code = 5078517830) 0.07 10*3/uL 0.00-0.06 H LYMPH x10^3 (test code = 731-0) 1.87 10*3/uL 1.09-3.23 MONO x10^3 (test code = 742-7) 0.93 10*3/uL 0.36-1.02 EOS x10^3 (test code = 711-2) 0.09 10*3/uL 0.06-0.53 BASO x10^3 (test code = 704-7) 0.04 10*3/uL 0.01-0.09 Lab Interpretation (test code = 95167-0) Abnormal [facility] [place]"
--- NOTE | 2023-10-28 15:32 | RAD REPORT ---
EXAM DESCRIPTION: CT - Stone Protocol - 10/28/2023 2:54 pm CLINICAL HISTORY: Abdominal pain. COMPARISON: 2008 TECHNIQUE: Computed axial tomography of the abdomen pelvis was obtained without oral or IV contrast. Lack of IV and oral contrast limits evaluation of solid organs, appendix, bowel, and vessels. Reddy l reformatted images were obtained and reviewed. All CT scans are performed using dose optimization technique as appropriate and may include automated exposure control or mA/KV adjustment according to patient size. FINDINGS: A renal calculus is not seen. An ureteral calculus is not noted. A bladder calculus is not present. The liver, spleen, pancreas and adrenals appear grossly normal There is no evidence of diverticulitis. The appendix appears normal Moderate to large right and moderate left inguinal hernias contain fat. 5.1 centimeter area of increased density is present within the fat of the anterior mid right pelvis. It does not appear to be associated with bowel Cortical irregularity involves the vertebral endplates of L5 and S1 IMPRESSION: Negative for a genitourinary calculus Moderate to large right and moderate left inguinal hernias 5.1 centimeter area of increased density within the fat of the anterior mid right pelvis may represen t an infarct Cortical irregularity involves the vertebral endplates of L5 and S1. This probably is degenerative in nature. Inflammation/infection can also have this appearance should be correlated clinically and wit h appropriate lab values
[2023-10-28 16:51] LABS: Absolute Lymphocytes (CBC) 1.7 K/uL (0.7-4.9); Hematocrit 40.5 % (39.6-49.0); Lymphocytes % 17.5 % (15.3-44.8); MPV 6.1 fL (7.6-11.3); Platelets 157 thou/uL (152-406); RBC Red Blood Cell Count 4.82 M/uL (4.33-5.43)
[2023-10-28 16:54] LABS: Specific Gravity 1.024 (1.005-1.030); Urine Bacteria <20 /HPF (<20); Urine Bilirubin NEGATIVE (Negative); Urine Blood Negative (Negative); Urine Clarity Clear (Clear); Urine Color Light-Yellow (Yellow); Urine Glucose NEGATIVE (Negative); Urine Mucus Slight /HPF (None Seen); Urine Protein NEGATIVE (Negative); Urine RBC <5 /HPF (None Seen); Urine Urobilinogen Normal (Normal); Urine pH 5.5 (5.0-7.0)
[2023-10-28 17:09] LABS: Albumin 3.6 g/dL (3.4-5.0); Bilirubin Total 0.4 mg/dL (0.2-1.0); Potassium 3.7 mEq/L (3.5-5.1); Protein, Total 7.8 g/dL (6.4-8.2)
[2023-10-28] MEDS ORDERED: NA CHLORIDE 0.9% 1,000 ML ONE (17:31)
[2023-10-28] MEDS ORDERED: KETOROLAC 30 MG/ML INJ ONE (17:31)
[2023-10-28] MEDS ORDERED: ONDANSETRON 4 MG/2 ML VIAL ONE (17:31)
--- NOTE | 2023-10-28 17:43 | RAD REPORT ---
EXAM DESCRIPTION: CTAbdomen Angio10/28/2023 5:18 pm CLINICAL HISTORY: Abdominal pain COMPARISON: CT abdomen pelvis October 28, 2023 TECHNIQUE: CT angiogram of the abdomen obtained. 100 cc Isovue 370 administered intravenously. MIPS reconstruction performed All CT scans are performed using dose optimization technique as appropriate and may include automated exposure control or mA/KV adjustment according to patient size. FINDINGS: The abdominal aorta, right and left common iliac, right and left internal iliac and right and left external iliac arteries are normal caliber. No dissection. No aneurysm. No plaque Celiac, SMA, RICKEY and renal arteries unremarkable IMPRESSION: Unremarkable CT angiogram abdomen
--- NOTE | 2023-10-28 17:44 | RAD REPORT ---
EXAM DESCRIPTION: CTPelvis Angio10/28/2023 5:22 pm CLINICAL HISTORY: Abdominal pain COMPARISON: CT abdomen and pelvis October 28, 2023 TECHNIQUE: CT angiogram of the pelvis obtained. 100 cc Isovue 370 administered intravenously. MIPS reconstruction performed All CT scans are performed using dose optimization technique as appropriate and may include automated exposure control or mA/KV adjustment according to patient size. FINDINGS: The abdominal aorta, right and left common iliac, right and left internal iliac and right and left external iliac arteries are normal caliber. No dissection. No aneurysm. No plaque Celiac, SMA, RICKEY and renal arteries unremarkable IMPRESSION: Unremarkable CT angiogram pelvis [place] crieria Mild stenosis 0 to 49 % Moderate stenosis 50-69% Severe stenosis 70-99%
[2023-10-28] MEDS ORDERED: ACETAMINOPHEN 325 MG TABLET PO PRN (18:42)
[2023-10-28] MEDS ORDERED: ALBUTEROL 2.5 MG/3 ML NEB SOL NEB PRN (18:42)
--- NOTE | 2023-10-28 18:45 | EDPHYS ---
Physician Documentation [facility] Name: Aries Graham Jr Age: 38 yrs Sex: Male : 1985 Arrival Date: 10/28/2023 Time: 14:34 Bed 14 Private MD: ED Physician Wolfgang Valentin HPI: 10/28 15:03 This 38 yrs old Male presents to ER via Unassigned with complaints of Abdominal Problem.kb 15:03 Pt is a 38 year old male who presents with suprapubic/ right groin pain for 3 days. kb States pain is worse with sitting and laying. Reports he feels like something protrudes when he coughs and then goes back in. Denies n/v/d, fever. Historical: - Allergies: 17:50 No Known Allergies; cm10 - PMHx: 15:10 Hypertensive disorder; db - Immunization history:: Adult Immunizations unknown. - Social history:: Smoking status: Patient denies any tobacco usage or history of. ROS: 15:02 Constitutional: Negative for fever, chills, and weight loss, kb 15:02 Abdomen/GI: Positive for abdominal pain, 15:02 All other systems are negative, Exam: 15:02 Constitutional: This is a well developed, well nourished patient who is awake, alert, kb and in no acute distress. Head/Face: Normocephalic, atraumatic. ENT: Moist Mucous membranes Cardiovascular: Regular rate Respiratory: Respirations even and unlabored. No increased work of breathing. Talking in full sentences Skin: Warm, dry with normal turgor. Normal color. MS/ Extremity: Pulses equal, no cyanosis. Neurovascular intact. Full, normal range of motion. Neuro: Awake and alert, GCS 15, oriented to person, place, time, and situation. Moves all extremities. Normal gait. 15:02 Abdomen/GI: Inspection: obese Bowel sounds: normal, Palpation: abdomen is soft and non-tender, in all quadrants, Vital Signs: 15:08 BP 161 / 98; Pulse 79; Resp 18; Temp 97.9; Pulse Ox 97% ; Weight 154.22 kg; Height 5 db ft. 11 in. ; Pain 7/10; 16:46 BP 127 / 72; Pulse 74; Resp 18; Pulse Ox 97% ; Pain 8/10; tl4 17:17 BP 119 / 64; Pulse 76; Resp 18; Pulse Ox 100% on R/A; Pain 6/10; tl4 18:00 BP 136 / 76; Pulse 74; Resp 18; Pulse Ox 97% on R/A; tl4 19:00 BP 154 / 89; Pulse 79; Resp 18; Pulse Ox 98% on R/A; Pain 5/10; tl4 19:30 BP 141 / 83; Pulse 85; Resp 16; Pulse Ox 99% on R/A; tl4 20:30 BP 115 / 65; Pulse 80; Resp 18; Pulse Ox 96% on R/A; Pain 6/10; tl4 21:50 BP 118 / 46; Pulse 84; Resp 18; Pulse Ox 97% on R/A; Pain 6/10; tl4 15:08 Body Mass Index 47.42 (154.22 kg, 180.34 cm) db 15:08 Pain Scale: Adult db 16:46 Pain Scale: Adult tl4 17:17 Pain Scale: Adult tl4 19:00 Pain Scale: Adult tl4 20:30 Pain Scale: Adult tl4 21:50 Pain Scale: Adult tl4 Bisi Coma Score: 16:46 Eye Response: spontaneous(4). Motor Response: obeys commands(6). Verbal Response: tl4 oriented(5). Total: 15. MDM: 14:41 Patient medically screened. kb 15:03 Data reviewed: vital signs, nurses notes. kb 17:55 Differential diagnosis: diverticulitis, non-specific abd pain, urinary tract infection, kb colitis, hernia. Consideration of Admission/Observation Patient was admitted/placed on observation. Escalation of care including admission/observation considered. Management of patient was discussed with the following: Electrical Research Engineer: Dr Anand recommends obs, NPO after midnight. Counseling: I had a detailed discussion with the patient and/or guardian regarding the historical points, exam findings, and any diagnostic results supporting the discharge/admit diagnosis, lab results, radiology results, the need for further work-up and treatment in the hospital. 10/28 14:43 Order name: CBC with Diff; Complete Time: 16:56 kb 10/28 14:43 Order name: CMP; Complete Time: 17:11 kb 10/28 14:43 Order name: Urinalysis w/ reflexes; Complete Time: 16:56 kb 10/28 18:47 Order name: Lactate w/ 2H reflex if indic.; Complete Time: 20:01 EDMS 10/28 18:47 Order name: Urinalysis w/ reflexes EDMS 10/28 18:48 Order name: Basic Metabolic Panel EDUT 10/28 18:48 Order name: Basic Metabolic Panel EDUT 10/28 18:48 Order name: CBC with Automated Diff EDMS 10/28 18:48 Order name: CBC with Automated Diff EDMS 10/28 14:43 Order name: CT Stone Protocol; Complete Time: 15:33 kb 10/28 16:44 Order name: CT Abdomen - Angio; Complete Time: 17:46 kb 10/28 17:17 Order name: Pelvis Angio; Complete Time: 17:46 EDMS 10/28 18:47 Order name: CONS Physician Consult EDUT 10/28 14:43 Order name: IV Saline Lock; Complete Time: 16:46 kb 10/28 14:43 Order name: Labs collected and sent; Complete Time: 16:46 kb Administered Medications: 17:36 Drug: NS 0.9% IV 1000 ml IV at 1000 ml once Route: IV; Rate: 1000 ml; Site: left cm10 antecubital; 20:07 Follow up: Response: No adverse reaction; IV Status: Completed infusion; IV Intake: tl4 1000ml 17:36 Drug: Ketorolac IVP 15 mg IVP once Route: IVP; Site: left antecubital; cm10 20:07 Follow up: Response: Pain is decreased tl4 17:36 Drug: Ondansetron IVP 4 mg IVP once; over 2 minutes Route: IVP; Site: left antecubital; cm10 20:06 Follow up: Response: No adverse reaction tl4 Disposition: 10/29 06:59 Co-signature as Attending Physician, Wolfgang Valentin MD I reviewed the patient's care rn provided by the Advanced Practice Provider and agree with the diagnosis and treatment plan. Disposition Summary: 10/28/23 18:45 Hospitalization Ordered Notes: Hospitalization Status: Observation kb Provider: Cate Mooney Location: Telemetry/MedSurg (observation) kb Condition: Stable kb Problem: new kb Symptoms: are unchanged kb Bed/Room Type: [facility] Room Assignment: 215(10/28/23 20:10) kl Diagnosis - Lower abdominal pain, unspecified kb - Bilateral inguinal hernia, without obstruction or gangrene, not specified as kb recurrent Forms: - Medication Reconciliation Form kb - SBAR form kb - Leadership Thank You Letter kb Signatures: Dispatcher [employer] Tawanna Vaughan, DAWN GUTIERREZ-Suzy Osman, RN RN Wolfgang Cha MD MD rn Benton, Danielle, RN RN db Martinez, Clarissa, RN RN 10 Luis A Shahid 4 Corrections: (The following items were deleted from the chart) 10/28 20:10 18:45 monroe love
--- NOTE | 2023-10-28 18:45 | ER ---
Nurse's Notes [facility] Name: Aries Graham Jr Age: 38 yrs Sex: Male : 1985 Arrival Date: 10/28/2023 Time: 14:34 Bed 14 Private MD: Diagnosis: Lower abdominal pain, unspecified;Bilateral inguinal hernia, without obstruction or gangrene, not specified as recurrent Presentation: 10/28 15:08 Chief complaint: Patient states: PATIENT STATES THINKS HAS HERNIA RIGHT INGUINAL AREA. db PATIENT COMPLAINS OF PAIN. X 3 DAYS. DENIES HEAVY LIFTING. Coronavirus screen: Vaccine status: Patient reports receiving the 2nd dose of the covid vaccine. Client denies travel out of the [place] in the last 14 days. At this time, the client does not indicate any symptoms associated with coronavirus-19. Ebola Screen: Patient negative for fever greater than or equal to 101.5 degrees Fahrenheit, and additional compatible Ebola Virus Disease symptoms Patient denies exposure to infectious person. Patient denies travel to an Ebola-affected area in the 21 days before illness onset. No symptoms or risks identified at this time. Initial Sepsis Screen: Does the patient meet any 2 criteria? No. Patient's initial sepsis screen is negative. Does the patient have a suspected source of infection? No. Patient's initial sepsis screen is negative. Risk Assessment: Do you want to hurt yourself or someone else? Patient reports no desire to harm self or others. Onset of symptoms was October 28, 2023. 15:08 Method Of Arrival: Ambulatory db 15:08 Acuity: LUCILLE 3 db Triage Assessment: 15:10 General: Appears in no apparent distress. comfortable, Behavior is calm, cooperative. db Pain: Complains of pain in RIGHT INGUINAL. Respiratory: Airway is patent Respiratory effort is even, unlabored, Respiratory pattern is regular, symmetrical. GI: Abdomen is round. Historical: - Allergies: 17:50 No Known Allergies; cm10 - PMHx: 15:10 Hypertensive disorder; db - Immunization history:: Adult Immunizations unknown. - Social history:: Smoking status: Patient denies any tobacco usage or history of. Screenin:49 [facility] ED Fall Risk Assessment (Adult) History of falling in the last 3 months, tl4 including since admission No falls in past 3 months (0 pts) Confusion or Disorientation No (0 pts) Intoxicated or Sedated No (0 pts) Impaired Gait No (0 pts) Mobility Assist Device Used No (0 pt) Altered Elimination No (0 pt) Score/Fall Risk Level 0 - 2 = Low Risk Oriented to surroundings, Maintained a safe environment, Educated pt \T\ family on fall prevention, incl call for assistance when getting out of bed, Assessed \T\ reinforced patient's understanding of fall precautions, Provided non-skid footwear. Abuse screen: Denies threats or abuse. Denies injuries from another. Nutritional screening: No deficits noted. Tuberculosis screening: No symptoms or risk factors identified. Assessment: 16:48 General: Appears uncomfortable, Behavior is calm, cooperative. Pain: Complains of pain tl4 in abdomen. Neuro: No deficits noted. Cardiovascular: No deficits noted. Denies chest pain, lightheadedness, palpitations. Respiratory: No deficits noted. Denies shortness of breath. GI: Bowel sounds present X 4 quads. Abd is soft X 4 quads Abdomen is tender to palpation in right lower quadrant and left lower quadrant. : No deficits noted. No signs and/or symptoms were reported regarding the genitourinary system. EENT: No deficits noted. No signs and/or symptoms were reported regarding the EENT system. 21:09 Reassessment: Attempt to call report at 2108, left . tl4 Vital Signs: 15:08 BP 161 / 98; Pulse 79; Resp 18; Temp 97.9; Pulse Ox 97% ; Weight 154.22 kg; Height 5 db ft. 11 in. ; Pain 7/10; 16:46 BP 127 / 72; Pulse 74; Resp 18; Pulse Ox 97% ; Pain 8/10; tl4 17:17 BP 119 / 64; Pulse 76; Resp 18; Pulse Ox 100% on R/A; Pain 6/10; tl4 18:00 BP 136 / 76; Pulse 74; Resp 18; Pulse Ox 97% on R/A; tl4 19:00 BP 154 / 89; Pulse 79; Resp 18; Pulse Ox 98% on R/A; Pain 5/10; tl4 19:30 BP 141 / 83; Pulse 85; Resp 16; Pulse Ox 99% on R/A; tl4 20:30 BP 115 / 65; Pulse 80; Resp 18; Pulse Ox 96% on R/A; Pain 6/10; tl4 21:50 BP 118 / 46; Pulse 84; Resp 18; Pulse Ox 97% on R/A; Pain 6/10; tl4 15:08 Body Mass Index 47.42 (154.22 kg, 180.34 cm) db 15:08 Pain Scale: Adult db 16:46 Pain Scale: Adult tl4 17:17 Pain Scale: Adult tl4 19:00 Pain Scale: Adult tl4 20:30 Pain Scale: Adult tl4 21:50 Pain Scale: Adult tl4 Bisi Coma Score: 16:46 Eye Response: spontaneous(4). Motor Response: obeys commands(6). Verbal Response: tl4 oriented(5). Total: 15. ED Course: 14:38 Patient arrived in ED. mg5 14:40 Tawanna Montana FNP-C is [facility]. kb 14:40 Wolfgang Valentin MD is Attending Physician. kb 14:56 CT Stone Protocol In Process Unspecified. EDMS 15:09 Triage completed. db 15:10 Arm band placed on left wrist. Patient placed in waiting room. db 16:01 Patient placed in an exam room, on a stretcher. ll1 16:05 Luis A Shahid is Primary Nurse. tl4 16:46 CBC with Diff Sent. tl4 16:46 CMP Sent. tl4 16:46 Urinalysis w/ reflexes Sent. tl4 16:49 Patient has correct armband on for positive identification. Placed in gown. Bed in low tl4 position. Call light in reach. Side rails up X 1. Provided Education on: ED process. Door closed. Lights dimmed. Warm blanket given. 16:50 No provider procedures requiring assistance completed. tl4 16:50 Inserted saline lock: 20 gauge in left antecubital area, using aseptic technique. Blood tl4 collected. 17:20 CT Abdomen - Angio In Process Unspecified. EDMS 17:20 Pelvis Angio In Process Unspecified. EDMS 18:44 Cate Mooney MD is Hospitalizing Provider. kb 21:52 Patient admitted, IV remains in place. tl4 Administered Medications: 17:36 Drug: NS 0.9% IV 1000 ml IV at 1000 ml once Route: IV; Rate: 1000 ml; Site: left cm10 antecubital; 20:07 Follow up: Response: No adverse reaction; IV Status: Completed infusion; IV Intake: tl4 1000ml 17:36 Drug: Ketorolac IVP 15 mg IVP once Route: IVP; Site: left antecubital; cm10 20:07 Follow up: Response: Pain is decreased tl4 17:36 Drug: Ondansetron IVP 4 mg IVP once; over 2 minutes Route: IVP; Site: left antecubital; cm10 20:06 Follow up: Response: No adverse reaction tl4 Medication: 16:49 VIS not applicable for this client. tl4 Intake: 20:07 IV: 1000ml; Total: 1000ml. tl4 Outcome: 18:45 Decision to Hospitalize by Provider. kb 21:51 Admitted to Med/surg accompanied by tech, via wheelchair, room 215, Report called to tl4 RIMA Marcelo 21:51 Condition: stable 21:51 Instructed on the need for admit, 21:58 Patient left the ED. tl4 Signatures: Dispatcher [employer] EDMS Tawanna Montana, MONITORING ANALYST-C MONITORING ANALYST-Ckb Samia Patiño RN RN ll1 Gisele Box RN RN db Martinez, Clarissa, RN RN cm10 Jacqueline Leone mg5 Luis A Shahid tl4
--- NOTE | 2023-10-28 19:32 | P.HP ---
Certification for Inpatient Patient admitted to: Observation Patient will require the following post-hospital care: None Practitioner: I am a practitioner with admitting privileges, knowledge of patient current condition, hospital course, and medical plan of care. Services: Services provided to patient in accordance with Admission requirements found in Title 42 Section 412.3 of the Code of Federal Regulations Patient History Date of Service: 10/28/23 Reason for admission: Right groin or abdominal pain History of Present Illness: Pt is a 38 yo male with past medical history of hypertension who presents with suprapubic and right groin pain that started 3 days ago. the right groin pain is non-radiating, sharp, and constant in nature with severity of 8/10. It is worse with standing, bearing down or coughing. Staying still made it better. On admission, lab studies show WBC 10, K 3.7, Hgb 14.1, Cr 0.[address] abd /pelvis shows a moderate to large right and moderate left inguinal hernias, 5.1 centimeter area of increased density within the fat of the anterior mid right pelvis may represent an infarct and a cortical irregularity involves the vertebral endplates of L5 and S1. CTA abd/pelvis is unremarkable. The ER physician consulted Dr. Anand who recommended pt to be kept NPO for further evaluation. At bedside, pt is in NAD. He denies any fever, chills, chest pain, SOB, nausea, vomiting, leg edema or dysuria but reports right groin pain. Home medications list reviewed: Yes - Past Medical/Surgical History Has patient received pneumonia vaccine in the past: No Diabetic: No Past Medical History: Reviewed- Non-Contributory -: Hypertension Past Surgical History: Reviewed- Non-Contributory - Family History Family History: Reviewed- Non-Contributory - Social History Smoking Status: Never smoker Smoking therapy provided: No Patient receptive to therapy: No Alcohol use: Yes CD- Drugs: No Caffeine use: No Place of Residence: Home Review of Systems Unremarkable General: Unremarkable Eyes: Unremarkable ENT: Unremarkable Respiratory: Unremarkable Cardiovascular: Unremarkable Gastrointestinal: Abdominal Pain Genitourinary: Unremarkable Musculoskeletal: Unremarkable Integumentary: Unremarkable Neurological: Unremarkable Lymphatics: Unremarkable Physical Examination - Physical Exam General: Alert, In no apparent distress, Oriented x3 HEENT: Atraumatic, Normocephalic, PERRLA Neck: Supple, 2+ carotid pulse no bruit Respiratory: Clear to auscultation bilaterally, Normal air movement Cardiovascular: No edema, Normal pulses, Regular rate/rhythm, Normal S1 S2 Capillary refill: <2 Seconds Gastrointestinal: Normal bowel sounds, Soft and benign, Non-distended, Tenderness Musculoskeletal: No clubbing, No swelling Integumentary: No rashes, No breakdown Neurological: Normal speech, Normal strength at 5/5 x4 extr, Sensation intact Lymphatics: No axilla or inguinal lymphadenopathy - Studies Laboratory Data (last 24 hrs) 10/28/23 10/28/23 16:41 16:41 WBC 10.00 Hgb 14.1 Hct 40.5 Plt Count 157 Sodium 138 Potassium 3.7 BUN 19 H Creatinine 0.92 Glucose 95 Total Bilirubin 0.4 AST 12 L ALT 38 Alkaline Phosphatase 73 Assessment and Plan - Plan Abdominal pain: Unknown etiology. CT abd/pelvis shows a moderate to large right and moderate left inguinal hernias, 5.1 centimeter area of increased density within the fat of the anterior mid right pelvis may represent an infarct and a cortical irregularity involves the vertebral endplates of L5 and S1. Consulted Gen surgeon, Dr. Anand. Will keep pt NPO for further evaluation. Will continue IVF. Bilateral hernia: Pt complains of right groin pain. Waiting for evaluation by the Gen surgeon. Htn: Continue amlodipine. DVT ppx: heparin Code: full Discharge Plan: Home Plan to discharge in: 24 Hours - Advance Directives Does patient have a Living Will: No Does patient have a Durable POA for Healthcare: No - Code Status/Comfort Care Code Status Assessed: Yes Code Status: Full Code
[2023-10-28 22:34] VITALS: BMI 50.5
[2023-10-28] MEDS: NA CHLORIDE 0.9% 1,000 ML IV SCH (22:34)
[2023-10-28 23:34] VITALS: O2SAT 95
[2023-10-29] MEDS: HEPARIN 5000 UNIT/ML 1 ML VIAL SQ SCH ×3 (00:40→17:00)
[2023-10-29 03:19] LABS: Absolute Lymphocytes (CBC) 2.3 K/uL (0.7-4.9); Hematocrit 37.9 % (39.6-49.0); Lymphocytes % 22.9 % (15.3-44.8); MCV 84.1 fL (80-100); MPV 6.4 fL (7.6-11.3); Platelets 159 thou/uL (152-406); RBC Red Blood Cell Count 4.51 M/uL (4.33-5.43)
[2023-10-29 03:25] LABS: Potassium 3.9 mEq/L (3.5-5.1)
[2023-10-29] MEDS: NA CHLORIDE 0.9% 1,000 ML IV SCH ×2 (06:02→15:00)
--- NOTE | 2023-10-29 07:40 | P.PN ---
Subjective Date of Service: 10/29/23 Chief Complaint: Right groin or abdominal pain uprapubic and right groin pain, worse with standing, - Physical Exam General: Alert, In no apparent distress, Oriented x3 HEENT: Atraumatic, Normocephalic, PERRLA Neck: Supple, 2+ carotid pulse no bruit Respiratory: Clear to auscultation bilaterally, Normal air movement Cardiovascular: No edema, Normal pulses, Regular rate/rhythm, Normal S1 S2 Capillary refill: <2 Seconds Gastrointestinal: Normal bowel sounds, Soft and benign, Non-distended, T enderness Musculoskeletal: No clubbing, No swelling Integumentary: No rashes, No breakdown Neurological: Normal speech, Normal strength at 5/5 x4 extr, Sensation intact Lymphatics: No axilla or inguinal lymphadenopathy Review of Systems per HPI Physical Examination - Vital Signs Temperature: 96.8 F Blood Pressure: 104/52 Pulse: 60 Respirations: 16 Pulse Ox (%): 97 - Studies Laboratory Data (last 24 hrs) 10/28/23 10/28/23 16:41 16:41 WBC 10.00 Hgb 14.1 Hct 40.5 Plt Count 157 Sodium 138 Potassium 3.7 BUN 19 H Creatinine 0.92 Glucose 95 Total Bilirubin 0.4 AST 12 L ALT 38 Alkaline Phosphatase 73 Assessment And Plan - Plan Assessment plan Abdominal pain: Unknown etiology. Bilateral large right and moderate left inguinal hernias CT abd/pelvis shows a moderate to large right and moderate left inguinal hernias, 5.1 centimeter area of increased density within the fat of the anterior mid right pelvis may represent an infarct and a cortical irregularity involves the vertebral endplates of L5 and S1. Consulted Gen surgeon, Dr. Anand. Will keep pt NPO for further evaluation. Will continue IVF. Waiting for evaluation by the Gen surgeon. As needed analgesics Htn: Continue amlodipine. Full code Diet n.p.o. until surgery eval DVT ppx: heparin Discharge Plan: Home - Code Status/Comfort Care Code Status: Full Code Critical Care: No Time Spent Managing PTS Care (In Minutes): 35
[2023-10-29] MEDS ORDERED: AMLODIPINE 5 MG TAB PO SCH (09:00)
[2023-10-29] MEDS ORDERED: MORPHINE 4 MG/ML SYR IV PRN (11:20)
--- NOTE | 2023-10-29 12:42 | P.DS ---
Admission Date: 10/29/23 Discharge Date: 10/30/23 Disposition: ROUTINE DISCHARGE Discharge Condition: GOOD Reason for Admission: Right groin or abdominal pain - Problems (1) Inguinal hernia Status: Acute Brief History of Present Illness: 38-year-old male with a past medical history of atrial fibrillation, hypertension, tobacco use, alcohol use, hyperlipidemia, CAD with history of CABG, CKD stage IV presents to the emergency room with shortness of breath. He reports symptoms started 2 weeks ago with progressively getting worse. He report he sees Dr. Garner for cardiology. He reports associated lightheadedness that is worth worse with exertion. He reports being on Eliquis 5 mg he takes daily. He reports 4 alcoholic beverages daily, half a pack a day smoker. He denies chest pain, cough, edema, congestive heart failure.. Plan to admit for A-fib RVR, dizziness, cardiology to evaluate. Chest x-ray IMPRESSION: No acute cardiopulmonary process - Physical Exam General: Alert, In no apparent distress, Oriented x3 HEENT: Atraumatic, Normocephalic Neck: Supple, 2+ carotid pulse no bruit Respiratory: Clear to auscultation bilaterally, Normal air movement Cardiovascular: No edema, Normal pulses, Irregular heart rate/rhythm Gastrointestinal: Normal bowel sounds, Hypoactive Integumentary: No rashes, No breakdown Neurological: Normal speech, Normal strength at 5/5 x4 extr Hospital Course: 38 yo male year-old male with past medical history of HTN, B) inguinal hernia presented to the emergency room with a fall abdominal pain. Was noted to bilateral inguinal hernias was seen by Dr. Anand for surgery consult. Condition improved with as needed analgesics. Stable for discharge with follow- up surgery appointment . PROBLEM: Bilateral inguinal hernia Abdominal pain Surgical consult recommendation Impression: Fat necrosis, asymptomatic bilateral inguinal hernias Plan: The patient apparently was in considerable pain when first evaluated in the ER. CT scan demonstrated area of fat necrosis in the left lower quadrant, pelvic area. There is no associated free fluid, no evidence of abscess or any other surrounding pathology in the area. I discussed with patient the possibility of having his hernias repaired. He will think about it but is not interested to have it done right now. He is will follow-up with me as an outpatient in my office. At that time we will evaluate whether or not it is worth getting another CT scan in approximately 6 to 12 months. He is comfortable with this plan. He just is hungry and would like to eat before he goes. Prescription for [place] 10 his doctor instructed not to drive or operate heavy equipment while on as needed analgesic pain medication GOAL: Clear understanding of disease process INSTRUCTIONS: Physician Discharge Instructions: -DC IV and DC home -Follow-up with PCP in 1 to 2 weeks -Please call Dr. Ledbetter at [phone] if any questions regarding hospital stay -Please call nursing station at [phone] if any nursing or medication questions -Return to the emergency room if symptoms worsen Diet: ADA, low sodium Activity: Fall precautions DME: Date Ordered: Name of Company: [employer] Services Needed: None Date or Referral: IMMUNIZATION Influenza Vaccine Indicated: Influenza Vaccine Given: Vital Signs/Physical Exam: Temp Pulse Resp BP Pulse Ox 97.4 F 62 16 125/62 99 10/29/23 08:00 10/29/23 09:00 10/29/23 12:25 10/29/23 09:00 10/29/23 12:25 Laboratory Data at Discharge: WBC 10.30 thou/uL (4.3-10.9) 10/29/23 02:51 Hgb 13.0 g/dL (13.6-17.9) L 10/29/23 02:51 Hct 37.9 % (39.6-49.0) L 10/29/23 02:51 Plt Count 159 thou/uL (152-406) 10/29/23 02:51 Sodium 140 mEq/L (136-145) 10/29/23 02:51 Potassium 3.9 mEq/L (3.5-5.1) 10/29/23 02:51 BUN 20 mg/dL (7-18) H 10/29/23 02:51 Creatinine 0.82 mg/dL (0.70-1.30) 10/29/23 02:51 Glucose 102 mg/dL (74-106) 10/29/23 02:51 Total Bilirubin 0.4 mg/dL (0.2-1.0) 10/28/23 16:41 AST 12 U/L (15-37) L 10/28/23 16:41 ALT 38 U/L (16-61) 10/28/23 16:41 Alkaline Phosphatase 73 U/L (45-117) 10/28/23 16:41 Home Medications: Hydrocodone 10/APAP 325 [[place] 10/325] 1 tab PO Q6H PRN #30 tab 10/29/23 New Medications: Hydrocodone 10/APAP 325 [[place] 10/325] 1 tab PO Q6H PRN #30 tab PRN Reason: Pain Followup: Sergey Anand MD [Primary Care Provider] - 1-2 Weeks (follow up )
--- NOTE | 2023-10-29 15:14 | P.CNS ---
Date of Consult: 10/28/23 PC: I was asked to see this 38-year-old male in regards to his abdominal pain. HPC: Patient been experiencing some right lower quadrant abdominal pain, radiating to his groin area. Describes it as very severe. There is known that he has had inguinal hernias for the last few months, but this was a change in the characteristic discomfort that was there. PSHx: No prior surgeries PMHx: NAD Social Hx: No known allergies Sys R: No cough, wheeze, shortness of breath. No chest pain or palpitations. Has not a history of trauma or any heavy lifting over the last few days. 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 O/E: Awake alert vital signs are stable, comfortable at the moment no distress at all HEENT: Within normal limits Chest: Chest movement equal bilaterally Abd: Patient is obese abdomen however palpating in the right groin area patient does have a hernia appears to be reducible also when on the left-hand side. There is no acute findings to his abdominal discomfort. Currently on Lovenox [place]: Intact Data: CT scan shows an area of possible fat infarction in the left lower quadrant of the abdomen. The patient on physical exam is asymptomatic in this area. Impression: Fat necrosis, asymptomatic bilateral inguinal hernias Plan: The patient apparently was in considerable pain when first evaluated in the ER. CT scan demonstrated area of fat necrosis in the left lower quadrant, pelvic area. There is no associated free fluid, no evidence of abscess or any other surrounding pathology in the area. I discussed with patient the possibility of having his hernias repaired. He will think about it but is not interested to have it done right now. He is will follow-up with me as an outpatient in my office. At that time we will evaluate whether or not it is worth getting another CT scan in approximately 6 to 12 months. He is comfortable with this plan. He just is hungry and would like to eat before he goes.
[2023-10-29 16:56] VITALS: BP 144/75; TEMP 98
== END 2023-10-29 17:35 | disposition home or self-care (01) | DRG 394 ==
LOC: ER 14:34 → SUPCPDRO 14:34 → ERHOLD 18:40 → 2ND 21:12 → OBSVTOIN 10-29 14:53
PROVIDERS: ADMIT Hospitalist; ATTEND Hospitalist
DX: K40.20 Bilateral inguinal hernia, without obstruction or gangrene, not specified as recurrent (principal); N18.4 Chronic kidney disease, stage 4 (severe); I12.9 Hypertensive chronic kidney disease with stage 1 through stage 4 chronic kidney disease, or unspecified chronic kidney disease; I48.91 Unspecified atrial fibrillation; E78.5 Hyperlipidemia, unspecified; M79.89 Other specified soft tissue disorders; I25.10 Atherosclerotic heart disease of native coronary artery without angina pectoris; F17.210 Nicotine dependence, cigarettes, uncomplicated; Z95.1 Presence of aortocoronary bypass graft; Z79.01 Long term (current) use of anticoagulants
CPT/HCPCS: 36415; 72191; 74175; 74176; 76377; 80048; 80053; 81001; 83605; 85025; 96361; 96374; 96375; 99285; G0378; J1644; J2405; J7030; Q9967